=== PATIENT | male | born 1995 ===

== ENCOUNTER 2017-06-12 18:55 | Emergency (ER) | payer BC ==
[2017-06-12 19:07] VITALS: BP 138/82
--- NOTE | 2017-06-12 19:19 | EDM.PDOC ---
ED HPI GENERAL MEDICAL PROBLEM - General Chief Complaint: ENT Problem Stated Complaint: SINUS INFECTION Time Seen by Provider: 06/12/17 19:13 Source of Information: Reports: Patient History Limitations: Reports: No Limitations - History of Present Illness INITIAL COMMENTS - FREE TEXT/NARRATIVE: HISTORY AND PHYSICAL: [] 22-year-old male presents with pain to the right maxillary area History of Present Illness: []He isn't sick for the last 3 days he does have an appointment in a week and a half with the ENT specialist in [facility] Review of Systems: As per history of present illness and below otherwise all systems reviewed and negative. Past medical history: As per history of present illness and as reviewed below otherwise noncontributory. Surgical history: As per history of present illness and as reviewed below otherwise noncontributory. Social history: No reported history of drug or alcohol abuse. Family history: As per history of present illness and as reviewed below otherwise noncontributory. Physical exam: Alert and oriented gentleman who is answering questions in full sentences. It is warm and dry HEENT: Atraumatic, normocehpalic, pupils reactive, negative for conjunctival pallor or scleral icterus, mucous membranes moist, throat clear, neck supple, nontender, trachea midline. Exquisitely tender to the right sinus with light palpation. Light reflex is diminished on the right maxillary. He has nasal pharyngeal exudate to the posterior pharynx Lungs: Clear to auscultation, breath sounds equal bilaterally, chest non tender. Heart: S1S2, regular, negative for clicks, rubs, or JVD. Abdomen: Soft, nondistended, nontender. Negative for masses or hepatossplenmegaly. Negative for costovertebral tenderness. Pelvis: Stable nontender. Genitourinary: Deferred. Rectal: Deferred Extremities: Atraumatic, negative for cords or calf pain. Neurovascular unremarkable. Neuro: Awake, alert, oriented. Cranial nerves II through XII unremarkable. Cerebellum unremarkable. Motor and sensory unremarkable throughout. Exam nonfocal. Diagnostics: [] Therapeutics: [] Impression: [Acute maxillary sinusitis] Plan: [Discharged home Moist hot compresses may be of some benefit to relieve some of the pressure We'll place him on amoxicillin 875 twice a day 2 weeks Continue to keep appointment with specialist as scheduled] Definitive disposition and diagnosis as appropriate pending reevaluation and review of above. Onset: Sudden Duration: Day(s): (3) Location: Reports: Head, Face Quality: Reports: Ache, Dull, Pressure, Same as Previous Episode Severity: Moderate Improves with: Reports: None Worsens with: Reports: None right side facial Pain Score (Numeric/FACES): 5 - Related Data Allergies Allergy/AdvReac Type Severity Reaction Status Date / Time No Known Allergies Allergy Verified 06/12/17 19:02 Home Meds: Home Meds Amoxicillin 875 mg PO BID #28 tab 06/12/17 [Rx] Past Medical History - Past Health History Medical/Surgical History: Denies Medical/Surgical History HEENT History: Reports: None Cardiovascular History: Reports: None Respiratory History: Reports: None Gastrointestinal History: Reports: None Genitourinary History: Reports: None Musculoskeletal History: Reports: None Neurological History: Reports: None Psychiatric History: Reports: None Endocrine/Metabolic History: Reports: None Hematologic History: Reports: None Oncologic (Cancer) History: Reports: None Dermatologic History: Reports: None - Infectious Disease History Infectious Disease History: Reports: Chicken Pox Social & Family History - Family History Family Medical History: Noncontributory - Tobacco Use Smoking Status *Q: Never Smoker - Recreational Drug Use Recreational Drug Use: No ED ROS ENT - Review of Systems Review Of Systems: ROS reveals no pertinent complaints other than HPI. ED EXAM, ENT - Physical Exam Exam: See Below (see dictation) Course - Vital Signs Last Recorded V/S: Last Vital Signs Temp 36.2 C 06/12/17 19:03 Pulse 67 06/12/17 19:03 Resp 20 06/12/17 19:03 BP 138/82 06/12/17 19:03 Pulse Ox 99 06/12/17 19:03 Departure - Departure Time of Disposition: 19:16 Disposition: Home, Self-Care 01 Condition: Good Clinical Impression: Sinusitis, maxillary, chronic - Discharge Information Prescriptions: Amoxicillin 875 mg PO BID #28 tab Forms: ED Department Discharge
== END 2017-06-12 19:20 | disposition home or self-care (01) ==
LOC: MW.ED 18:55
DX: J01.00 Acute maxillary sinusitis, unspecified (principal)
CPT/HCPCS: 99283